=== PATIENT | female | born 1980 | race American Indian/Alaskan Native ===

== ENCOUNTER 2021-02-12 19:01 | Emergency (ER) | payer BC ==
[2021-02-12 19:49] VITALS: BP 156/100
--- NOTE | 2021-02-12 21:08 | Emergency Department Report ---
ED Extremity Problem HPI - General Chief complaint: Extremity Injury, Lower Stated complaint: LT KNEE PAIN Source: patient Mode of arrival: Ambulatory Limitations: No Limitations - History of Present Illness Initial comments: 40-year-old [place] female with significantly elevated BMI presents emergency department complaining of 2-month history of dull throbbing left knee pain which is worse with palpation and range of motion and improves with oral medication, for which she is currently under the care of [facility] orthopedic. States that she was seen and evaluated by them for her left knee pain and with obtain an x- ray which showed no osseous injury. A cortisone shot was provided to the knee a couple ago however as she attempted to play kickball of the following day which reignited the pain to the knee. She did not touch base with her orthopedic physician who advised of the need for an an MRI on the knee and a scheduled MRI for next week however she states the pain is becoming more more uncomfortable and the [id number] motion is not helping so she seeks to have an MRI here in the emergency department and pain control. She reports no numbness or tingling, no swelling, no fever, chills, sweats, no blunt trauma to the knee and feels she did not damage her knee while playing kickball although the pain had not subsided so she was unable to finish the game. Location: left History of Same: Yes -: Yes arthralgia Radiation: none Quality: aching, dull Consistency: constant Improves with: nothing Worsens with: nothing, weight bearing, walking, palpation Associated Symptoms: denies: chest pain, shortness of breath, fever, rash - Related Data Home Medications Medication Instructions Recorded Confirmed Last Taken Iron [Iron 18 MG TAB] 325 mg PO QDAY 02/14/13 02/14/13 03/04/13 Previous Rx's Medication Instructions Recorded Last Taken Type Meloxicam [Mobic] 7.5 mg PO QDAY #14 tablet 01/20/13 02/13/13 Rx traMADoL [Ultram 50 MG tab] 50 mg PO Q6HR PRN #12 tablet 01/20/13 02/13/13 Rx Docusate Sodium [Colace] 100 mg PO BID PRN #60 capsule 03/08/13 Unknown Rx Ferrous Sulfate [Feosol 325 MG tab] 325 mg PO QDAY #30 tablet 03/08/13 Unknown Rx Ibuprofen [Motrin 800 MG tab] 800 mg PO TID PRN #30 tablet 03/08/13 Unknown Rx oxyCODONE /ACETAMINOPHEN [Percocet 1 tab PO Q4H #30 tablet 03/08/13 Unknown Rx 5/325] Oxycodone HCl/Acetaminophen 1 each PO Q6HR PRN #20 tablet 03/22/14 Unknown Rx [Percocet 10-325 mg] Cyclobenzaprine [Flexeril 10mg] 10 mg PO TID PRN #30 tablet 08/25/14 Unknown Rx Ibuprofen [Motrin] 800 mg PO Q8H #30 tablet 08/25/14 Unknown Rx traMADoL [Ultram 50 MG tab] 50 mg PO Q6HR PRN #20 tablet 08/25/14 Unknown Rx Ketorolac [Toradol] 10 mg PO Q6H PRN #10 tablet 02/12/21 Unknown Rx traMADoL [Ultram] 50 mg PO Q6HR PRN #14 tablet 02/12/21 Unknown Rx Allergies Allergy/AdvReac Type Severity Reaction Status Date / Time sulfamethoxazole Allergy Rash Verified 01/19/13 21:16 [From Bactrim] trimethoprim [From Bactrim] Allergy Rash Verified 01/19/13 21:16 ED Review of Systems ROS: Stated complaint: LT KNEE PAIN Other details as noted in HPI Comment: All other systems reviewed and negative ED Past Medical Hx - Past Medical History Previous Medical History?: Yes Hx Congestive Heart Failure: No Hx Diabetes: No Hx Arthritis: Yes (KNEE) Hx Asthma: No Hx COPD: No - Surgical History Past Surgical History?: Yes Additional Surgical History: c section x 2 tubal ligation; hysterectomy 03/06/2013 right shoulder and back lift and tummy tuck - Social History Smoking Status: Never Smoker Substance Use Type: None - Medications Home Medications: Home Medications Medication Instructions Recorded Confirmed Last Taken Type Meloxicam [Mobic] 7.5 mg PO QDAY #14 tablet 01/20/13 02/13/13 Rx traMADoL [Ultram 50 MG tab] 50 mg PO Q6HR PRN #12 tablet 01/20/13 02/13/13 Rx Iron [Iron 18 MG TAB] 325 mg PO QDAY 02/14/13 02/14/13 03/04/13 History Docusate Sodium [Colace] 100 mg PO BID PRN #60 capsule 03/08/13 Unknown Rx Ferrous Sulfate [Feosol 325 MG tab] 325 mg PO QDAY #30 tablet 03/08/13 Unknown Rx Ibuprofen [Motrin 800 MG tab] 800 mg PO TID PRN #30 tablet 03/08/13 Unknown Rx oxyCODONE /ACETAMINOPHEN [Percocet 1 tab PO Q4H #30 tablet 03/08/13 Unknown Rx 5/325] Oxycodone HCl/Acetaminophen 1 each PO Q6HR PRN #20 tablet 03/22/14 Unknown Rx [Percocet 10-325 mg] Cyclobenzaprine [Flexeril 10mg] 10 mg PO TID PRN #30 tablet 08/25/14 Unknown Rx Ibuprofen [Motrin] 800 mg PO Q8H #30 tablet 08/25/14 Unknown Rx traMADoL [Ultram 50 MG tab] 50 mg PO Q6HR PRN #20 tablet 08/25/14 Unknown Rx Ketorolac [Toradol] 10 mg PO Q6H PRN #10 tablet 02/12/21 Unknown Rx traMADoL [Ultram] 50 mg PO Q6HR PRN #14 tablet 02/12/21 Unknown Rx ED Physical Exam - General Limitations: No Limitations General appearance: alert, in no apparent distress - Head Head exam: Present: atraumatic, normocephalic - Eye Eye exam: Present: normal appearance, PERRL, EOMI Pupils: Present: normal accommodation - ENT ENT exam: Present: normal exam, mucous membranes moist - Neck Neck exam: Present: normal inspection, full ROM - Respiratory Respiratory exam: Present: normal lung sounds bilaterally. Absent: respiratory distress, wheezes, rales, rhonchi, chest wall tenderness, accessory muscle use, decreased breath sounds - Cardiovascular Cardiovascular Exam: Present: regular rate, normal rhythm. Absent: systolic murmur, diastolic murmur, rubs, gallop - GI/Abdominal GI/Abdominal exam: Present: soft, normal bowel sounds. Absent: distended, tenderness, guarding - Extremities Exam Extremities exam: Present: normal inspection, full ROM, normal capillary refill. Absent: pedal edema, calf tenderness - Expanded Lower Extremity Exam Left Knee exam: Present: full ROM, tenderness (Tenderness with palpation to the anterior knee and to the medial posterior aspect of the knee. No popliteal masses appreciated. Stable to weight-bear as able to get on and off the table. There is a slight antalgic gait due to this due to the pain with ambulation but the gait is coordinated and st), full knee extension. Absent: swelling, abrasion, laceration, ecchymosis, deformity, dislocation, erythema, pain w/ pronation/supination, posterior draw sign, pain/laxity with valgus, pain/laxity with varus Lower Leg exam: Present: normal inspection, full ROM, tenderness Ankle exam: Present: normal inspection, full ROM, tenderness Foot/Toe exam: Present: normal inspection, full ROM, tenderness. Absent: laceration, ecchymosis Neuro vascular tendon exam: Present: no vascular compromise. Absent: abnormal cap refill, motor deficit - Back Exam Back exam: Present: normal inspection. Absent: CVA tenderness (R), CVA tenderness (L) - Neurological Exam Neurological exam: Present: alert, oriented X3, CN II-XII intact. Absent: normal gait - Psychiatric Psychiatric exam: Present: normal affect, normal mood. Absent: manic, homicidal ideation, suicidal ideation - Skin Skin exam: Present: warm, dry, intact, normal color. Absent: rash, diaphoretic, erythema, petechiae, pallor, abrasion ED Course Vital Signs 02/12/21 19:44 Temperature 98.8 F Pulse Rate 77 Respiratory 18 Rate Blood Pressure 156/100 O2 Sat by Pulse 100 Oximetry ED Medical Decision Making - Medical Decision Making Seen in valve via emergency department today for left knee pain of's of a subacute origin. It is recommended you that you maintain the follow-up with the orthopedic doctor and and continue follow-up with the the MRI which they have already scheduled and recommended. Please consult your doctor to make them aware of your current pain levels. We will provide you with some temporary analgesic medication to help you with with with control. This time there is no evidence of any urgent or emergent medical condition with your needed crutches will be provided so that you can minimize your weightbearing along with and an David wrap for comfort. Please keep your left iced and elevated per RICE protocol Critical care attestation.: If time is entered above; I have spent that time in minutes in the direct care of this critically ill patient, excluding procedure time. ED Disposition Clinical Impression: Left medial knee pain, Posterior left knee pain Disposition: HOME / SELF CARE / HOMELESS Is pt being admited?: No Does the pt Need Aspirin: No Condition: Stable Instructions: Musculoskeletal Pain, How to Use Cold Therapy, How to Use a Knee Brace Prescriptions: Ketorolac [Toradol] 10 mg PO Q6H PRN #10 tablet PRN Reason: Pain traMADoL [Ultram] 50 mg PO Q6HR PRN #14 tablet PRN Reason: Pain Referrals: [facility] [Provider Group] - 3-5 Days
== END 2021-02-12 21:30 | disposition home or self-care (01) ==
LOC: ED 19:01
DX: M25.562 Pain in left knee (principal); M19.90 Unspecified osteoarthritis, unspecified site; Z90.710 Acquired absence of both cervix and uterus; Z98.890 Other specified postprocedural states; Z88.2 Allergy status to sulfonamides
CPT/HCPCS: 99283